=== PATIENT | female | born 2000 | race Caucasian/White ===

== ENCOUNTER 2018-08-08 14:09 | Inpatient (IN) | payer MEDICAID ==
[~2018-08-08] VITALS: Ht 165.1 cm; Wt 58.5 kg
[2018-08-08 14:29] VITALS: BP 116/65; PULSE 106; RESP 18
[2018-08-08] MEDS ORDERED: PREN-93 PO (14:29)
[2018-08-08 14:30] VITALS: Ht 165.1 cm; Wt 58.5 kg
--- NOTE | 2018-08-08 15:37 | TRIAGE ---
OB Triage Datetime Report Generated by CPN: 08/08/2018 15:37 Datetime: 08/08/2018 15:00 Stage of : OB Triage Maternal Assessment Level of Consciousness: Fully Conscious Labor Evaluation Frequency: 2-5 Monitor Mode: External Duration (sec)2399: 40-100 Quality: Moderate Resting Tone [place]: Relaxed Heart Rate FHR Baseline Rate: 135 Monitor Mode: External US Variability: Moderate 6-25 bpm Accelerations: 15X15 Decelerations: None Category: Category I Pain Assessment Pain Scale: 0 Pain Goal: 3 Datetime: 08/08/2018 14:37 Vaginal Exam Dilatation (cms): 3.0 Effacement (%): 50 Station: -2 Exam By: CITLALLI Vaginal Bleeding: Normal Show Pool: Negative Nitrazine: Negative Cervix, Consistency: Soft Cervix, Position: Posterior Datetime: 08/08/2018 14:27 Assessment Type: Triage Maternal Assessment Level of Consciousness: Fully Conscious DTR's/Clonus: DTRs 2+; No Clonus Headache: Denies Blurred Vision: No Respiratory Effort: Unlabored; Regular Rhythm; Equal Expansion Breath Sounds, Left: Clear and Equal Breath Sounds, Right: Clear and Equal Nausea/Vomiting: Denies RUQ Epigastric Pain: Denies Lower Extremities Edema: None Degree: None Upper Extremities Edema: None Degree: None Facial Edema: None Fall Risk Assessment History of Falling: (0) No Secondary Diagnosis: (0) No Ambulatory Aid: (0) Bedrest/Nurse Assist IV Therapy: (0) No Gait: (0) Normal/Bedrest/Immobile Mental Status: (0) Oriented to Own Ability Fall Score: 0 Fall Risk Score Definition: No Risk: No action required Datetime: 08/08/2018 14:26 EGA: 38.5 Datetime: 08/08/2018 14:25 Time of Arrival: 08/08/2018 14:02 Arrived By: Ambulatory Arrived From: Home Chief Complaint: PT. HERE C/O LEAKING AND UC'S Movement: Present Contractions: Irregular Rupture of Membranes: Unsure Vaginal Bleeding: None Vaginal Discharge: Denies Recent Sexual Intercouse: Denies Abdominal Trauma: Not Applicable Patient Complaints: Contractions; Cramping Provider Notified: JAQUAN Initial Plan: MICKEY/GREG
[2018-08-08] MEDS: DEXTROSE 5%-LR 1,000 ML IV SCH ×2 (15:52→23:52)
[2018-08-08] MEDS ORDERED: IBUPROFEN 600 MG TAB PO PRN (16:00)
[2018-08-08] MEDS ORDERED: AMPICILLIN 2 GM/NS (PMX) 100 ML IV ONE (16:00)
[2018-08-08] MEDS ORDERED: MISOPROSTOL 200 MCG TAB PR PRN (16:00)
[2018-08-08] MEDS ORDERED: OXYTOCIN 30 UNITS/LR 500 ML IV PRN (16:00)
[2018-08-08] MEDS ORDERED: BUTORPHANOL 2 MG INJ IV PRN (16:00)
[2018-08-08] MEDS ORDERED: CARBOPROST 250 MCG INJ IM PRN (16:00)
[2018-08-08] MEDS ORDERED: OXYTOCIN 30 UNITS/LR 500 ML IV SCH ×2 (16:00)
[2018-08-08] MEDS ORDERED: METHYLERGONOVINE 0.2 MG INJ IM PRN (16:00)
[2018-08-08] MEDS ORDERED: LIDOCAINE 1% (MPF) 30 ML INJ INJ PRN (16:00)
[2018-08-08 16:34] VITALS: BP 111/70; PULSE 83; RESP 19
[2018-08-08] MEDS: LACTATED RINGER'S 1,000 ML IV SCH ×2 (19:40→23:49)
[2018-08-08] MEDS: AMPICILLIN 1 GM/NS (PMX) 50 ML IV SCH ×2 (19:57→23:29)
[2018-08-09] MEDS ORDERED: FENTAnyl 2MCG/ML-ROPIV 0.2% 100 ML ONE (00:10)
--- NOTE | 2018-08-09 00:14 | PREAC ---
Date/Time of Note Date/Time of Note DATE: 08/09/18 TIME: 00:12 Anesthesia Eval and Record Evaluation Time Pre-Procedure Interview DATE: 08/08/18 TIME: 23:21 Age 17 Sex female NPO: 8 hrs Preoperative diagnosis iup @ 38 wks., labor, Planned procedure odette Past Medical History Past Medical History: Includes : : (1), Para: (0), Gestational age: (38 wks.) Surgery & Anesthesia Issues No known issue Meds Anticoagulation: No Beta Makenzie within 24 hr: No Reason Beta Makenzie not given: Pt. not on B-Makenzie Reported Medications Vit No.124/Iron/FA ( Vitamin Tablet) 1 Each Tablet, 1 EACH PO DAILY, TAB 08/08/18 Current Medications Dextrose/Lactated Ringer's 1,000 ml @ 125 mls/hr Q8H IV ; Start 08/08/18 at 15:52 Ampicillin 50 ml @ 100 mls/hr Q4H IV Last administered on 08/08/18at 23:29; Admin Dose 100 MLS/HR; Start 08/08/18 at 20:00 Butorphanol Tartrate (Stadol) 2 mg Q2H PRN IV PAIN; Start 08/08/18 at 16:00 Lidocaine (Xylocaine 1% (Mpf)) 30 ml ONCE PRN INJ EPISIOTOMY; Start 08/08/18 at 16:00 Oxytocin/Lactated Ringer's 500 ml @ 500 mls/hr ONCE POST IV ; Start at 16:00 Oxytocin/Lactated Ringer's 500 ml @ 125 mls/hr POST IV ; Start 08/08/18 at 16:00 Ibuprofen (Motrin) 600 mg ONCE PRN PO PAIN LEVEL 1-5; Start 08/08/18 at 16:00 Oxytocin/Lactated Ringer's 500 ml @ 0 mls/hr ONCE PRN IV VAGINAL BLEEDING; Start 08/08/18 at 16:00 Methylergonovine Maleate (Methergine) 0.2 mg ONCE PRN IM VAGINAL BLEEDING; Start 08/08/18 at 16:00 Carboprost Tromethamine (Hemabate) 250 mcg ONCE PRN IM VAGINAL BLEEDING; Start 08/08/18 at 16:00 Misoprostol (Cytotec) 1,000 mcg ONCE PRN NC VAGINAL BLEEDING; Start 08/08/18 at 16:00 Lactated Ringer's 1,000 ml @ 125 mls/hr Q8H IV Last administered on 08/08/18at 23:49; Admin Dose 125 MLS/HR; Start 08/08/18 at 17:30 Meds reviewed: Yes Allergies Coded Allergies: No Known Allergy (Unverified , 08/08/18) Allergies Reviewed: Yes Labs/Studies Labs Reviewed: Reviewed by anesthesiologist Result Diagram: 08/08/18 1615 Laboratory Tests 08/08/18 16:15 Blood Bank Test 08/08/18 16:15 Blood Type A POSITIVE Rh Immune Globulin Candidate NO test: Positive Studies: ECG (n/a), CXR (n/a) Pre-procedure Exam Last vitals Vital Signs Date Temp Pulse Resp B/P (MAP) Pulse Ox O2 O2 Flow FiO2 Time Delivery Rate 08/08/18 98.1 83 19 111/70 Room Air 16:34 (84) Airway: Adequate mouth opening, Adequate thyromental dist Mallampati: Mallampati II Teeth: Normal Lung: Normal Heart: Normal ASA Physical Status ASA physical status: 2 Emergency: E Planned Anesthetic Neuraxial: Epidural Planned Pain Management Epidural, Local by surgeon Pre-operative Attestations Prior to commencing anesthesia and surgery, the patient was re-evaluated, there was verification of: *The patient's identity *The results of appropriate recent lab work and preoperative vital signs *The above evaluation not changing prior to induction *Anesthetic plan, risk benefits, alternative and complications discussed with patient/family; questions answered; patient/family understands, accepts and wishes to proceed. Spare Person used SEAN LOPEZ MD Aug 09, 2018 00:14
--- NOTE | 2018-08-09 00:15 | PAC ---
Date/Time of Note Date/Time of Note DATE: 08/09/18 TIME: 23:30 Post-Anesthesia Notes Post-Anesthesia Note Last documented vital signs Vital Signs Date Temp Pulse Resp B/P (MAP) Pulse Ox O2 O2 Flow FiO2 Time Delivery Rate 08/08/18 98.1 83 19 111/70 Room Air 16:34 (84) Activity: WNL Respiratory function: WNL Cardiovascular function: WNL Mental status: Baseline Pain reasonably controlled: Yes Hydration appropriate: Yes Nausea/Vomiting absent: Yes SEAN LOPEZ MD Aug 09, 2018 00:15
[2018-08-09] MEDS ORDERED: NALBUPHINE HCL (10 MG/1 ML) INJ IV PRN (00:30)
[2018-08-09] MEDS ORDERED: NALOXONE (0.4 MG/ML) INJ IV PRN (00:30)
[2018-08-09] MEDS ORDERED: DIPHENHYDRAMINE 50 MG INJ IV PRN (00:30)
[2018-08-09] MEDS ORDERED: FENTAnyl 2MCG/ML-ROPIV 0.2% 100 ML BAG EPI SCH (00:30)
[2018-08-09] MEDS ORDERED: ONDANSETRON 4 MG INJ IV PRN (00:30)
[2018-08-09] MEDS: AMPICILLIN 1 GM/NS (PMX) 50 ML IV SCH ×2 (03:56→08:14)
[2018-08-09] MEDS: LACTATED RINGER'S 1,000 ML IV SCH ×2 (06:01→17:30)
[2018-08-09] MEDS: DEXTROSE 5%-LR 1,000 ML IV SCH ×3 (07:52→23:52)
--- NOTE | 2018-08-09 08:38 | HP ---
Date/Time of Note Date/Time of Note DATE: 08/09/18 TIME: 08:37 OB - History Hx of Present Free Text/Dictation 38+wks GA in labor : 2 Para: 1 Care: Good Care Ultrasounds: Normal mid trimester US Obstetrical Complications: None Medical Complications: None Past Family/Social History * Past Medical, Surgical, Family and Obstetric Histories reviewed from chart. OB Admission Exam Vital Signs Vital Signs Vital Signs Date Temp Pulse Resp B/P (MAP) Pulse Ox O2 O2 Flow FiO2 Time Delivery Rate 08/08/18 98.1 83 19 111/70 Room Air 16:34 (84) Physical Exam Abdomen: WNL Extremities: Normal Membranes: Ruptured Heart Rate: 140's Contractions on Admission: < 5 Minutes Apart Last 72 hours Lab Results CBC & BMP 08/08/18 16:15 OB Assessment/Plan Reason for admission: observation Plan: Expectant Management JUDITH GILES M.D. Aug 09, 2018 08:38
--- NOTE | 2018-08-09 08:39 | LDN ---
Date/Time of Note Date/Time of Note DATE: 08/09/18 TIME: 08:38 Delivery Summary 38+ Placenta Delivered: Spontaneously Meconium: none Episiotomy: No Anesthesia type: Epidural Estimated blood loss: 200 Sponge & Needle done & correct: Yes All needle counts correct: Yes Infant Delivery Information Sex Sex: female Apgars 1 Minute: 9 5 Minute: 9 Suctioning Nose & mouth suctioned at areli: Yes Delee suction performed: Yes Umbilical Cord Umbilical cord with: 3 Vessels Cord presentations: no nuchal cord Cord Blood was obtained: Yes Mother & Baby Disposition Disposition Mom & Baby to Maternity; Good: Yes Baby to NICU: No JUDITH GILES M.D. Aug 09, 2018 08:39
[2018-08-09 10:45] VITALS: BP 109/73; PULSE 71; RESP 18
[2018-08-09] MEDS ORDERED: OXYTOCIN 30 UNITS/LR 500 ML IV SCH (10:54)
[2018-08-09] MEDS ORDERED: METHYLERGONOVINE 0.2 MG INJ IM PRN (11:00)
[2018-08-09] MEDS ORDERED: OXYTOCIN 30 UNITS/LR 500 ML IV PRN (11:00)
[2018-08-09] MEDS ORDERED: LANOLIN HPA 1 PKT TOP PRN (11:00)
[2018-08-09] MEDS ORDERED: SENNA/DOCUSATE NA (8.6MG/50MG) TAB PO PRN (11:00)
[2018-08-09] MEDS ORDERED: ZOLPIDEM 5 MG TAB PO PRN (11:00)
[2018-08-09] MEDS ORDERED: BENZOCAINE 20% 56 ML SPRAY TOP PRN (11:00)
[2018-08-09] MEDS ORDERED: MISOPROSTOL 200 MCG TAB PR PRN (11:00)
[2018-08-09] MEDS ORDERED: CARBOPROST 250 MCG INJ IM PRN (11:00)
[2018-08-09] MEDS ORDERED: OXYCODONE/ASPIRIN (4.88/325) TAB PO PRN (11:00)
[2018-08-09] MEDS ORDERED: NACL 0.9% 3 ML SYG IV SCH (11:00)
[2018-08-09] MEDS ORDERED: WITCH HAZEL/GLYCERIN PAD PR PRN (11:00)
[2018-08-09 11:34] VITALS: BP 117/73; PULSE 68; RESP 18
[2018-08-09] MEDS: IBUPROFEN 600 MG TAB PO SCH ×2 (12:43→17:44)
[2018-08-09 16:05] VITALS: BP 111/55; PULSE 84; RESP 20
--- NOTE | 2018-08-09 18:14 | NUR ---
EOSS: patient in stable condition. bonding well with her baby. denies pain at this time. voiding well. well.
[2018-08-09 20:30] VITALS: BP 102/52; PULSE 80; RESP 17
[2018-08-09] MEDS: SENNA/DOCUSATE NA (8.6MG/50MG) TAB PO SCH (22:02)
[2018-08-10] MEDS: IBUPROFEN 600 MG TAB PO SCH ×5 (00:07→23:51)
[2018-08-10] MEDS: LACTATED RINGER'S 1,000 ML IV SCH (01:23)
[2018-08-10 04:00] VITALS: BP 96/52; PULSE 79; RESP 18
--- NOTE | 2018-08-10 05:46 | NUR ---
EOSS Patient in stable condition, bonding well with baby, voiding without difficulty, pain controlled by the medication, fundus firm with scant amount of lochia, ambulating afebrile.
[2018-08-10] MEDS: DEXTROSE 5%-LR 1,000 ML IV SCH ×3 (06:02→23:52)
[2018-08-10 07:45] VITALS: BP 95/55; PULSE 85; RESP 18
[2018-08-10] MEDS: SENNA/DOCUSATE NA (8.6MG/50MG) TAB PO SCH ×2 (10:20→21:14)
--- NOTE | 2018-08-10 15:51 | QN ---
Documentation Comment PPD#1 is stable afebrile tolerates Diet No VB +BM +voids Vs stable Gen NAD Abd soft NT ND Genitalia No blood at perineum --->Ambulation JUDITH GILES M.D. Aug 10, 2018 15:51
[2018-08-10 16:00] VITALS: BP 107/58; PULSE 85; RESP 18
--- NOTE | 2018-08-10 16:19 | NUR ---
SW NOTE: CONSULT - LIMITED PNC - UDS NEGATIVE AT [facility] THIS PENSIONS RETIREMENT PLAN SPECIALIST DISCUSSED THE PT WITH RN, IVAN, AND MET WITH THE PT AT BEDSIDE TO ASSES. USED THE PHONE INTERPRETIVE SERVICES TO COMMUNICATE IN [place]AN[place]. ASSISTANT PRODUCTION EDITOR WAS ALFRED ID #[id number]. PT IS g-2 AND p-2. HAS A 2Y/O DAUGHTER. SHE MOVED FROM [facility] X2 MONTHS AGO AND IS NOW LIVING WITH HER AUNT, CINDY WEAVER, PH: [phone]. PT STATED HER AUNT IS CARING FOR HER 2Y/O AT THIS TIME. PT STATED THE FOB LIVES IN [facility]. THE WAS PLANNED BUT THE PT DID NOT HAVE ANY PNC IN [facility] AND ONLY STARTED AFTER SHE [facility]. PT STATED SHE IS ENROLLED IN wic AND PLANS TO BREASTFEED. PT HAS A CAR SEAT AND A CRIB AND HER AUNT, CINDY, WILL TRANSPORT HOME AT DISCHARGE. PT DENIED ANY DV, ALCOHOL/DRUGS, AND DENIED ANY HX OR CURRENT MENTAL ILLNESS. MOB STATED HER AUNT IS SUPPORTIVE. PT PL[place] THE [place]. SW DISCUSSED MEDI-ARCADIO AND WIC FOR THE BABY. PT DENIED ANY OTHER P/S ISSUES. PT'S UDS IS NEGATIVE AT [facility]. BABY MAY BE DISCHARGED TO THE [facility] WHEN MEDICALLY CLEARED. RN TO PROVIDE THE DC INSTRUCTIONS AT TIME OF DISCHARGE.
--- NOTE | 2018-08-10 17:45 | NUR ---
EOSS:PATIENT IN STABLE CONDITION AND BONDING WELL WITH THE BABY.
[2018-08-10 20:10] VITALS: BP 91/54; PULSE 84; RESP 17
[2018-08-11 03:34] VITALS: BP 106/57; PULSE 80; RESP 17
--- NOTE | 2018-08-11 04:15 | NUR ---
EOSS stable, her baby exclusively, progressing towards goals, Rubella not immune- to endorsed to morning shift, for possible discharge today.
[2018-08-11] MEDS: IBUPROFEN 600 MG TAB PO SCH ×2 (05:53→12:00)
[2018-08-11 08:00] VITALS: BP 102/57; RESP 18
[2018-08-11] MEDS ORDERED: DIPHTH/TET/ACEL PERTUSS (ADULT) 0.5 ML VIAL IM* ONE (09:00)
[2018-08-11] MEDS: SENNA/DOCUSATE NA (8.6MG/50MG) TAB PO SCH (10:13)
[2018-08-11] MEDS ORDERED: VITAMIN A & D 5 GM OINT PACKET TOP ONE (15:46)
[2018-08-11 16:00] VITALS: BP 112/71; PULSE 71; RESP 18
[2018-08-11 16:15] VITALS: BP 112/71; PULSE 71; RESP 18
--- NOTE | 2018-08-11 16:38 | DS ---
Date/Time of Note Date/Time of Note DATE: 08/11/18 TIME: 16:36 Obstetrical Discharge Record Final Diagnosis Final Diagnosis: Term delivered Other Final Diagnosis 17 years old 2 para 2002 s/p normal vaginal delivery at 38+ weeks. PPD#2. Her course was unremarkable. She is ambulating and tolerating regular diet. She is voiding without difficulty. Pain is controlled on current medication. - AF, VSS - Baby is doing well, at bed side. She is bonding well - Contraception methods with R/B/A/FR discussed - Continue care - Discharge home - Rx and instruction given - Follow up in 2 and 6 weeks at clinic Vaginal Delivery Obstetrical Delivery: Spontaneous Condition on Discharge Physical Assessment Last Vitals: Vital Signs Date Temp Pulse Resp B/P (MAP) Pulse Ox O2 O2 Flow FiO2 Time Delivery Rate 08/11/18 98.6 18 102/57 Room Air 08:00 (72) 08/11/18 80 03:34 Voiding: Yes Bowel Movement: Yes Breast: Soft, non-tender Fundus: Firm Calf Tenderness: No Patient Condition: Stable DES PARTIDA Aug 11, 2018 16:38
--- NOTE | 2018-08-11 17:00 | NUR ---
DISCHARGE TEACHING COMPLETED FOR MOM AND BABY. MOM WILL CALL THE CLINIC IN THE MORNING AND SCHEDULE HER POST VISIT. MOM VERBALIZED UNDERSTANDING OF ALL DISCHARGE TEACHING. ID BANDS WERE MATCHED AND CUT AT TIME OF DISCHARGE. CORD CLAMP AND SENSOR WERE REMOVED. MOM AND BABY WERE DISCHRAGED HOME IN STABLE CONDITION PER WHEELCHAIR WITH ALL PERSONAL BELONGINGS
== END 2018-08-11 17:05 | disposition home or self-care (01) | DRG 807 ==
LOC: OBT 14:09 → L-D 14:10 → OBT 15:33 → L-D 15:33 → PP1 08-09 10:41
PROVIDERS: ADMIT Obstetrics & Gynecology; ATTEND Obstetrics & Gynecology
PROC: 10E0XZZ Delivery of Products of Conception, External Approach (ICD-10-PCS; principal; 2018-08-09)
DX: O80 Encounter for full-term uncomplicated delivery (principal); Z37.0 Single live birth; Z3A.38 38 weeks gestation of pregnancy; Z23 Encounter for immunization
CPT/HCPCS: 62319; 76815; 76818; 80307; 84112; 85025; 85610; 85730; 86592; 86703; 86762; 86900; 86901; 87340; 90686; 90715; G0463; J0290; J2590; J3010; J7120; J7121